=== PATIENT | male | born 1955 | race Caucasian/White ===

== ENCOUNTER 2018-03-28 21:27 | Inpatient (IN) | payer OTHER ==
[~2018-03-28] VITALS: Ht 177.8 cm; Wt 87.1 kg
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
--- NOTE | ~2018-03-28 | PR ---
[place], [place] PROGRESS NOTE NAME: TODD ZEE UNIT #: [id number] ROOM: 314 DOCTOR: LEO KAPADIA MD BIRTHDATE: [birth year] DOS: 04/03/2018 CHIEF COMPLAINT: "If I wasn't anxious I would think you would have to worry about me." SUMMARY OF THE VISIT: The patient was interviewed as he was resting in bed. He awoke easily and engaged readily in conversation. He reports that he is nervous about returning home and is fearful what will happen. He has thought about moving, but states he has too much belongings and too many lose ends to be able to tie up before he would be able to entertain moving. He does report that the current medication regimen is helping and he is in less pain and he is sleeping better. He still has overriding anxiety, however, throughout most of the day. MENTAL STATUS: He is alert and oriented. Mood does seem to be trending towards euthymia. Affect is much more appropriate. He does endorse anxiety that is fairly consistent throughout the day. There is no joanne, hypomania or psychotic symptomatology. Short term, intermediate and long-term memories are relatively fully intact. PLAN: I will renew his Ativan p.r.n. in case he requires intervention. I will start him on a nonaddicting antianxiety agent utilizing Vistaril 50 mg 3 times daily to try to impact positively on his free floating anxiety throughout the day. We will engage in individual and howell milieu activity, returning then to the least restrictive environment when psychiatrically stable. LEO KAPADIA MD CM:PNTRANS [id number] LEO KAPADIA MD 04/03/18 1131 interface
--- NOTE | ~2018-03-28 | PR ---
[place], [place] PROGRESS NOTE NAME: TODD ZEE UNIT #: [id number] ROOM: 314 DOCTOR: LEO KAPADIA MD BIRTHDATE: [birth year] DOS: 04/04/2018 CHIEF COMPLAINT: That Vistaril helped, although I am a little tired from it." SUMMARY OF THE VISIT: The patient was interviewed as he was engaging in group therapy activities. He reported to me that he felt better since I added the Vistaril that it has definitely helped him calmed down and not ruminate so much about the past. He does note that it has caused him some mild sedation, but he is hopeful that this is something that will dissipate over time. Otherwise, he feels that he is gradually making improvement with the current drug regimen. MENTAL STATUS: He is alert and oriented. Mood does seem to be strongly trending towards euthymia. Affect is more appropriate. There is no joanne, hypomania or psychosis. Memory is intact. PLAN: I will maintain his current psychotropic regimen, engage in individual and howell milieu activity with the plan to return to the least restrictive environment when stable. LEO KAPADIA MD CM:PNTRANS [id number] LEO KAPADIA MD 04/04/18 1126 interface
--- NOTE | ~2018-03-28 | PR ---
[place], [place] PROGRESS NOTE NAME: TODD ZEE UNIT #: [id number] ROOM: 314 DOCTOR: LEO KAPADIA MD BIRTHDATE: [birth year] DOS: 04/01/2018 CHIEF COMPLAINT: "I feel a little bit better." SUMMARY OF THE VISIT: The patient was interviewed as he sat on the couch dining area. He engaged readily in conversation and reported to me that he feels a little better, as he did that, several other patients nodded their head and gave him positive affirmation that he is doing so much better and looks better. He reports that the pain is a little less. He is still very concerned about getting out of here, so he can attend to his cats. I assured him that social security specialist had already reached out to family members and they were going in to check on them and make certain that they were taken care of. This put his mind at rest. I told him I would go ahead and further adjust his medicines accordingly to combat the depression and help reduce the pain and he nodded in agreement. MENTAL STATUS: He is alert and oriented. Mood does still seem to be depressed with anxious overtones. There is no hypomania or joanne. There are no overt auditory or visual hallucinations. No delusions, no paranoia. Short term, intermediate, and long-term memory are intact. PLAN: I will increase the Cymbalta to 30 mg in the morning and 60 mg at night in order to combat the depression, the anxiety and the pain. Continue to engage him in individual and howell milieu activity, returning home or to the least restrictive environment when psychiatrically stable. LEO KAPADIA MD CM:PNTRANS [id number] LEO KAPADIA MD 04/01/18 1200 interface
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
--- NOTE | ~2018-03-28 | PR ---
[place], [place] PROGRESS NOTE NAME: TODD ZEE UNIT #: [id number] ROOM: 314 DOCTOR: LEO KAPADIA MD BIRTHDATE: [birth year] DOS: 03/31/2018 CHIEF COMPLAINT: "Pain is still so bad." SUMMARY OF THE VISIT: The patient was interviewed as he was resting in bed. He was not sleeping. He had his eyes open as I approached. He reports to me that the pain is still present and that the pain kept him up at night. He did state that he tolerated the medicine changes well and notes no side effects and is willing to allow me to aggressively adjust the Cymbalta. MENTAL STATUS: He is alert and oriented. Mood does still seem to be depressed with a constricted range of affect. There is still some paranoia surrounding his neighbors and he feels that they are persecuting him. Short-term memory, long-term memory and intermediate are grossly intact. PLAN: I will increase Cymbalta to 30 mg twice daily. We will engage in individual and howell milieu activity, returning to the least restrictive environment when psychiatrically stable. LEO KAPADIA MD CM:PNTRANS [id number] LEO KAPADIA MD 03/31/18 1134 interface
[2018-03-28] MEDS ORDERED: ZANAFLEX2 M2 PO (22:30)
[2018-03-28] MEDS ORDERED: TRAZODONE50 MG PO (22:31)
[2018-03-28] MEDS ORDERED: LYRICA300 MG PO (22:55)
[2018-03-28] MEDS ORDERED: TRAMADOL HCL50 MG PO (22:55)
[2018-03-28] MEDS ORDERED: ADDERALL 30 MG30 MG PO (22:56)
[2018-03-28] MEDS ORDERED: DEPAKOTE ER500 MG PO (22:57)
[2018-03-28] MEDS ORDERED: DEPAKOTE500 M1 PO (22:59)
[2018-03-28] MEDS ORDERED: VALIUM10 MG PO (23:00)
[2018-03-29 00:31] VITALS: BP 124/76
[2018-03-29 07:28] LABS: BASO % 0.6 % (0.0-1.0); EOS # 0.1 10*3/uL (0.0-0.4); HEMATOCRIT 47.4 % (42.0-52.0); HEMOGLOBIN 15.3 g/dl (14.0-18.0); LYMPH # 1.2 10*3/uL (1.3-4.4); LYMPH % 22.3 % (27.0-41.0); MEAN CELL VOLUME 91.5 fl (80.0-94.0); MEAN CORPUSCULAR HGB 29.5 pg (27.0-31.0); MEAN CORPUSCULAR HGB CONC 32.3 g/dl (33.0-37.0); MEAN PLATELET VOLUME 10.2 fl (9.6-12.3); MONO # 0.6 10*3/uL (0.1-1.0); NEUT # 3.4 10*3/uL (2.3-7.9); NEUT % 64.9 % (47.0-73.0); PLATELET COUNT AUTOMATED 234 10*3/uL (130-400); RED BLOOD COUNT 5.18 10*6/uL (4.50-5.90); RED CELL DISTRI WIDTH 13.7 % (0-14.5); WHITE BLOOD COUNT 5.3 10*3/uL (4.8-10.8)
[2018-03-29 07:37] VITALS: BP 123/82
[2018-03-29 07:52] LABS: ALBUMIN 3.7 gm/dl (3.1-4.5); BUN 17 mg/dl (7-24); CHLORIDE 108 mmol/L (98-107); CHOLESTEROL 169 mg/dL (<200); CREATININE 0.81 mg/dL (0.70-1.30); SGOT/AST 20 IU/L (3-35); SGPT/ALT 20 U/L (12-78); SODIUM 140 mmol/L (136-145); TOTAL PROTEIN 7.1 gm/dL (6.4-8.2); TRIGLYCERIDES 93 mg/dl (<150); VLDL CHOLESTEROL 19 mg/dL (6-40)
[2018-03-29 07:59] LABS: ALKALINE PHOSPHATASE 84 U/L (45-117); HDL CHOLESTEROL 55 mg/dl (40-60); LDL CHOLESTEROL 95 mg/dL (9-159); THYROID STIM HORMONE (HS) 0.653 uIU/ml (0.358-4.75); VALPROIC ACID (DEPAKENE) 20.1 ug/ml (50-100)
[2018-03-29 09:15] LABS: VITAMIN D, 25-HYDROXY 30.5 ng/mL (30-100)
[2018-03-29 20:00] VITALS: BP 111/63
[2018-03-30 07:49] VITALS: BP 114/70
[2018-03-30 20:00] VITALS: BP 116/72
[2018-03-31 07:56] VITALS: BP 121/66
[2018-03-31 10:49] LABS: BILIRUBIN NEGATIVE (NEGATIVE); BLOOD NEGATIVE (NEGATIVE); CLARITY SL CLOUDY (CLEAR); COLOR YELLOW (YELLOW); GLUCOSE NEGATIVE (NEGATIVE); KETONE TRACE (NEGATIVE); LEUKO ESTERASE NEGATIVE (NEGATIVE); NITRITE NEGATIVE (NEGATIVE); PH 8.5 (5.0-9.0); UROBILINOGEN 0.2 E.U./dl (0.2-1.0)
[2018-03-31 11:01] LABS: BACTERIA 4+; WBC 0-2 wbc/hpf (0-5)
[2018-03-31 21:29] VITALS: BP 108/60
[2018-04-01 07:53] VITALS: BP 132/85
[2018-04-01 20:00] VITALS: BP 121/72
[2018-04-02 07:38] VITALS: BP 135/76
[2018-04-02 19:37] VITALS: BP 105/65
[2018-04-03 08:18] VITALS: BP 140/83
[2018-04-03 20:00] VITALS: BP 130/73
[2018-04-04 07:44] VITALS: BP 128/66
[2018-04-04 19:51] VITALS: BP 121/76
[2018-04-05 07:54] VITALS: BP 123/60
[2018-04-05] MEDS ORDERED: INVEGA9 MG PO (08:52)
[2018-04-05] MEDS ORDERED: DIVALPROEX SOD500 M1 PO (08:52)
[2018-04-05] MEDS ORDERED: ATARAX,VISTARIL50 MG PO (08:52)
[2018-04-05] MEDS ORDERED: DULOXETINE HCL60 MG PO (08:52)
== END 2018-04-05 19:55 | disposition home or self-care (01) | DRG 885 ==
LOC: 3N 21:27
PROVIDERS: Psychiatry & Neurology Psychiatry
DX: F25.9 Schizoaffective disorder, unspecified (principal); E87.8 Other disorders of electrolyte and fluid balance, not elsewhere classified; F23 Brief psychotic disorder; R45.850 Homicidal ideations; G40.909 Epilepsy, unspecified, not intractable, without status epilepticus; F41.9 Anxiety disorder, unspecified; M54.9 Dorsalgia, unspecified; G89.29 Other chronic pain; F32.9 Major depressive disorder, single episode, unspecified; Z79.899 Other long term (current) drug therapy